=== PATIENT | male | born 1995 | race Caucasian/White ===

== ENCOUNTER 2023-12-06 14:13 | Emergency (ER) | payer BC, SELFPAY ==
[2023-12-06 14:27] VITALS: BP 143/97
--- NOTE | 2023-12-06 15:06 | ED.GENMED ---
History of Present Illness
General
Chief Complaint: Musculo-Skeletal Complaint
Source: patient
Exam Limitations: none
Time Seen by Provider: 12/06/23 14:45
Nursing documentation reviewed up to this point in time: agreed with
History of Present Illness
History of Present Illness:
28-year-old male presenting to the emergency department today with concerns of left sided and posterior neck stiffness after moving furniture 4 days ago. [place] neck pain that same evening ongoing over the past 4 days. Denies numbness weakness
changes in vision or additional concerns. Pain made worse with head rotation.
Review of Systems
Review of Systems
Allergies reviewed?: Yes
All Other Systems: ROS reviewed and negative except as documented in HPI and ROS
Phy Exam
Physical Exam
Physical Exam:
GENERAL: Alert , in no apparent distress
EYE: pupils equal and reactive
NECK: Discomfort with head rotation but otherwise no specific tenderness palpation no midline pain. No redness swelling or warmth. Supple, no significant adenopathy.
ENT: o/p clr, mmm.
CARDIAC: Regular rate and rhythm .
LUNGS: Clear breath sounds bilaterally, no acute respiratory distress, no wheezes/rales/rhonchi
ABDOMEN: Soft, without focal tenderness, no r/g, no cvat
NEUROLOGICAL: Alert and oriented, no focal neuro deficits
SKIN: Warm and dry, skin intact.
MUSCULOSKELETAL: Discomfort with head rotation left and right but otherwise good range of motion. No edema, well perfused.
PSYCH: Normal and appropriate interaction.
Course
Orders/Labs/Results
Orders:
Orders
12/06/23 15:05
Acetaminophen [Tylenol] 1,000 mg PO NOW STA
Ketorolac [Toradol] 30 mg IM NOW STA
Vital Signs
Initial and Last Documented VS:
Initial Vital Signs
Temp Pulse Resp Pulse Ox
98.4 F 73 18 98
12/06/23 14:25 12/06/23 14:25 12/06/23 14:25 12/06/23 14:25
Last Documented Vital Signs
Temp Pulse Resp BP Pulse Ox
98.4 F 73 18 143/97 98
12/06/23 14:25 12/06/23 14:25 12/06/23 14:25 12/06/23 14:27 12/06/23 14:25
MDM/Problems Addressed
MDM/Problems Addressed:
28-year-old male presenting to the emergency department today with concerns of neck discomfort after moving furniture a few days ago. Ongoing pain for a few days normal neurologic evaluation here. No redness swelling warmth no signs of infection
no neurologic dysfunction. Patient with likely neck strain plan for symptomatic treatment return precautions given.
*Critical Care Note
Total Time (30-74mins, 75-104mins- exclusive of procedures): Not Applicable
ED Attending Note
-
Portions of this chart may have been created with voice recognition software.� Occasional wrong word or��sound alike� substitutions may have occurred due to the inherent limitations of voice recognition software.
Discharge Plan
Departure
Patient Disposition: Home (Routine Discharge)
Date of Disposition: 12/06/23
Time of Disposition: 15:09
Patient with high blood pressure during this ER visit?: No
Condition: Good
Covid-19: Not Applicable
Discharge Problem:
Strain of neck
Instructions: Muscle Strain (DC)
Prescriptions:
New
cyclobenzaprine 10 mg tablet
10 mg PO HS PRN (Reason: muscle spasm) Qty: 7 0RF
ibuprofen 600 mg tablet
600 mg PO Q6H PRN (Reason: Pain) Qty: 14 0RF
Referrals:
NONE,* [Family Provider] -
Stand Alone Forms: Return to Work
Interventions
Interventions:
*Risk Screen - Suicide Last Done: 12/06/23 14:26
*General Assessment Last Done: 12/06/23 14:26
*Neglect/Abuse Screening Last Done: 12/06/23 14:26
*ED COVID-19 Vaccine History Last Done: 12/06/23 14:26
ED-Musculoskeletal Assessment Last Done: 12/06/23 14:42
Discharge Date and Time
Print Language: MONGOLIAN
[2023-12-06] MEDS: TORADOL 30 MG IM (15:13)
[2023-12-06] MEDS: TYLENOL 1000 MG PO (15:14)
[2023-12-06 15:39] VITALS: BP 140/80
== END 2023-12-06 15:40 | disposition home or self-care (01) ==
LOC: EMR 14:13
PROVIDERS: EMERGENCY PHYSICIAN Emergency Medicine
DX: S16.1XXA Strain of muscle, fascia and tendon at neck level, initial encounter (principal); X50.0XXA Overexertion from strenuous movement or load, initial encounter
CPT/HCPCS: 99284; 96372

== ENCOUNTER 2024-05-02 21:27 | Emergency (ER) | payer BC, OTHER, SELFPAY ==
[2024-05-02 21:28] VITALS: BMI 36.5
[2024-05-02 21:30] VITALS: BP 170/114
[2024-05-03 00:02] VITALS: BP 150/110
[2024-05-03 00:31] VITALS: BP 131/101
[2024-05-03 01:00] VITALS: BP 141/93
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
[2024-05-03 01:01] VITALS: BP 138/96
== END 2024-05-03 01:18 | disposition home or self-care (01) ==
LOC: EMR 21:27
PROVIDERS: EMERGENCY PHYSICIAN Emergency Medicine
DX: S16.1XXA Strain of muscle, fascia and tendon at neck level, initial encounter (principal); V49.40XA Driver injured in collision with unspecified motor vehicles in traffic accident, initial encounter; Y99.0 Civilian activity done for income or pay; R03.0 Elevated blood-pressure reading, without diagnosis of hypertension
CPT/HCPCS: 99285; 70450; 72125; 73130